=== PATIENT | male | born 1995 | race Hispanic/Latino ===

== ENCOUNTER 2023-12-30 06:31 | Emergency (ER) | payer SELFPAY ==
[~2023-12-30] VITALS: Ht 175.3 cm; Wt 72.6 kg
[2023-12-30 06:45] VITALS: TEMP 98.1
[2023-12-30] MEDS: FENTANYL CITRATE/PF 100MCG/2 ML INJ IV PRN (07:30)
[2023-12-30] MEDS ORDERED: ULTRAM 50MG50 MG PO (09:21)
[2023-12-30 10:01] VITALS: PULSE 74; RESP 17
[2023-12-30 10:35] VITALS: BP 107/78; PULSE 76; RESP 16; O2SAT 100
== END 2023-12-30 10:37 | disposition home or self-care (01) ==
LOC: ER 06:41
DX: K40.90 Unilateral inguinal hernia, without obstruction or gangrene, not specified as recurrent (principal)
CPT/HCPCS: 76870; 93976; 99284; J3010